=== PATIENT | female | born 1965 | race Caucasian/White ===

== ENCOUNTER → 2020-08-30 | Outpatient (CLI) | payer MEDICARE, MEDICAID ==
[~2020-08-30] MED LIST: ALPR0.5T7 PO; AMLO-150 PO; AMLO10TA4 PO; AMLO2.5T5 PO; BIOT25005 PO; CHOL10003 PO; DICL75TA3 PO; ESTR1PAT89; ESTR1TAB15 PO; ETAN50DI2 INJ; FLUT9.9S NAS; GABA-826 PO; GABA300C PO; GABA300C10 PO; HYDR-3240 PO; HYDR12.517 PO; LACT1CAP37 PO; LEFL20TA PO; LORA10TA75 PO; LOSA50TA2 PO; METH750T87 PO; METO1TAB18 PO; MONT10TA6 PO; OMEP40CA42 PO; ONDA4TAB7 PO; OXYC-307 PO; OXYC10TA6 PO
[2020-08-30 16:27] LABS: HCT (SEDRATE) 41.9 % (34.6-47.8)
[2020-08-30 16:30] LABS: BASOPHILS % (AUTO) 1 % (0-1); EOSINOPHILS % (AUTO) 4 % (1-7); LYMPHOCYTES % (AUTO) 30 % (22-44); MEAN CORPUSCULAR HEMOGLOBIN 29.3 pg (27.0-34.8); MEAN CORPUSCULAR HGB CONC 31.5 g/dL (32.4-35.8); MEAN PLATELET VOLUME 7.9 fL (7.4-10.4); MONOCYTES % (AUTO) 13 % (2-9); NEUTROPHILS % (AUTO) 52 % (42-75); PLATELET COUNT 293 x10^3/uL (130-400); RED BLOOD COUNT 4.56 x10^6/uL (3.82-5.3); RED CELL DISTRIBUTION WIDTH 15.3 % (9.6-15.2)
[2020-08-30 16:32] LABS: INTERNATIONAL NORMALIZED RATIO 0.98 (0.93-1.1); PROTHROMBIN TIME 10.4 Seconds (9.6-11.5)
[2020-08-30 16:34] LABS: ALBUMIN 2.9 g/dL (3.4-5.0); ANION GAP 4 mmol/L (5-15); CALCIUM 8.6 mg/dL (8.5-10.1); CHLORIDE 111 mmol/L (98-107)
[2020-08-30 16:37] LABS: ALANINE AMINOTRANSFERASE 31 U/L (12-78); ALKALINE PHOSPHATASE 115 U/L (45-117); BILIRUBIN,TOTAL 0.4 mg/dL (0.2-1.0); CREATININE 0.81 mg/dL (0.55-1.02); MD NO; TOTAL PROTEIN 6.3 g/dL (6.4-8.2)
== END | disposition home or self-care (01) ==
LOC: STAR 14:30
PROVIDERS: ATTEND Orthopaedic Surgery Orthopaedic Surgery of the Spine
DX: Z01.812 Encounter for preprocedural laboratory examination (principal); M16.12 Unilateral primary osteoarthritis, left hip; Z20.828 Contact with and (suspected) exposure to other viral communicable diseases
CPT/HCPCS: 36415; 71046; 80053; 83036; 85025; 85610; 85651; 85730; 87081; 87635; 93005

== ENCOUNTER → 2020-12-20 | Outpatient (CLI) | payer MEDICARE, MEDICAID ==
[~2020-12-20] MED LIST changes: +ASPI325T17 PO; +ASPI500P3 PO; +CEPH-368 PO; +HYDR-1067 PO; -HYDR-3240 PO; +METO50TA82 PO; -OXYC-307 PO; +OXYC-380 PO
[2020-12-20 14:08] LABS: ALBUMIN 3.1 g/dL (3.4-5.0); ANION GAP 5 mmol/L (5-15); CALCIUM 9.4 mg/dL (8.5-10.1); CHLORIDE 106 mmol/L (98-107); PROTHROMBIN TIME 10.7 Seconds (9.6-11.5)
[2020-12-20 14:09] LABS: BASOPHILS % (AUTO) 2 % (0-1); EOSINOPHILS % (AUTO) 4 % (1-7); LYMPHOCYTES % (AUTO) 25 % (22-44); MEAN CORPUSCULAR HEMOGLOBIN 24.5 pg (27.0-34.8); MEAN CORPUSCULAR HGB CONC 31.7 g/dL (32.4-35.8); MEAN PLATELET VOLUME 8.4 fL (7.4-10.4); MONOCYTES % (AUTO) 10 % (2-9); NEUTROPHILS % (AUTO) 59 % (42-75); PLATELET COUNT 330 x10^3/uL (130-400); RED BLOOD COUNT 5.01 x10^6/uL (3.82-5.3); RED CELL DISTRIBUTION WIDTH 19.9 % (9.6-15.2)
[2020-12-20 14:11] LABS: ALANINE AMINOTRANSFERASE 23 U/L (12-78); ALKALINE PHOSPHATASE 117 U/L (45-117); BILIRUBIN,TOTAL 0.5 mg/dL (0.2-1.0); CREATININE 0.74 mg/dL (0.55-1.02); TOTAL PROTEIN 6.5 g/dL (6.4-8.2)
[2020-12-20 14:34] LABS: ANISOCYTOSIS 1+; HYPOCHROMIA 1+; MD MORPH REVIEW ONLY; MICROCYTOSIS 1+
[2020-12-20 14:35] LABS: POLYCHROMASIA 1+
[2020-12-20 14:36] LABS: <PLATELET ESTIMATE> ADEQUATE; <PLT MORPHOLOGY> NORMAL PLT MORPH; OVALOCYTES 1+
[2020-12-20 15:00] LABS: HCT (SEDRATE) 38.8 % (34.6-47.8)
== END | disposition home or self-care (01) ==
LOC: STAR 12:21
PROVIDERS: ATTEND Orthopaedic Surgery Orthopaedic Surgery of the Spine
DX: Z01.812 Encounter for preprocedural laboratory examination (principal); Z20.822 Contact with and (suspected) exposure to COVID-19; R94.31 Abnormal electrocardiogram [ECG] [EKG]
CPT/HCPCS: 71046; 80053; 83036; 85025; 85610; 85651; 85730; 87635; 93005

== ENCOUNTER 2020-12-31 19:59 | Emergency (ER) | payer MEDICARE, MEDICAID ==
[~2020-12-31] VITALS: Ht 172.7 cm; Wt 91.9 kg
[2020-12-31 20:02] VITALS: BP 128/96
--- NOTE | 2020-12-31 20:26 | NUR ---
PROVIDER AT BEDSIDE TO ASSESS SURGICAL SITE.
--- NOTE | 2020-12-31 20:40 | NUR ---
PT BANDAGED PER VERBAL INSTRUCTIONS FROM PA
--- NOTE | 2020-12-31 20:42 | NUR ---
PREVIOUS NOTE BY JONNY HALL
== END 2020-12-31 21:18 | disposition home or self-care (01) ==
LOC: ED 20:47
DX: T81.31XA Disruption of external operation (surgical) wound, not elsewhere classified, initial encounter (principal); L76.34 Postprocedural seroma of skin and subcutaneous tissue following other procedure; I10 Essential (primary) hypertension; K21.9 Gastro-esophageal reflux disease without esophagitis
CPT/HCPCS: 99281

== ENCOUNTER 2021-01-17 12:34 | Inpatient (IN) | payer MEDICARE, MEDICAID ==
[~2021-01-17] VITALS: Ht 172.7 cm; Wt 85.3 kg
--- NOTE | 2021-01-17 13:03 | NUR ---
REPORT RECEIVED FROM ABIMBOLA HALL. PT RESTING ON GURNEY W/ CALL LIGHT IN REACH AND SIDE RAILS UPX2. RESP EVEN AND UNLABORED, DAYDAY. AWAITING ED EVAL.
--- NOTE | 2021-01-17 13:27 | NUR ---
THIS IS A 55 YO F BIB EMS W/ C/O LOW BACK PAIN S/P LOW BACK SX W/ 12/24/20. LAST APT WAS 01/05/21. PT REPORTS DIFFICULTY AMBULATING AND CARING FOR SELF R/T PAIN. NO RELIEF W/ HOME PAIN MEDS. NO OOZING, DRAINAGE, SWELLING AT SURGICAL SITE. UNABLE TO ASSESS WARMTH R/T PT LAYING ON BACK. PT FEBRILE AND TACHYCARIC, OTHER VS WDL. PT RECEIVED 400ML BOLUS, FENTANYL AND ZOFRAN CAR AUDIO INSTALLER PER ABIMBOLA RN. PT RESTING ON GURNEY W/ CALL LIGHT IN REACH AND SIDE RAILS UPX2. RESP EVEN AND UNLABORED, NADN.
[2021-01-17] MEDS ORDERED: HYDROmorphone 1 MG/ML, 1ML INJ ONE (13:41)
[2021-01-17] MEDS ORDERED: ONDANSETRON 2MG/ML, 2ML ONE (13:42)
--- NOTE | 2021-01-17 13:49 | NUR ---
LAB IN ROOM.
--- NOTE | 2021-01-17 13:50 | NUR ---
PT DESAT DURING LAB DRAW 88-89% RA. PLACED ON 2L NC PRIOR TO MEDICATING.
--- NOTE | 2021-01-17 13:56 | NUR ---
RAD IN ROOM.
[2021-01-17] MEDS ORDERED: SODIUM CHLORIDE 0.9% 1,000ML IVBOLUS ONE (14:00)
[2021-01-17] MEDS ORDERED: ONDANSETRON 2MG/ML, 2ML IVPush ONE (14:00)
[2021-01-17] MEDS ORDERED: HYDROmorphone 1 MG/ML, 1ML INJ IVPush PRN (14:00)
[2021-01-17 14:08] LABS: MEAN CORPUSCULAR HEMOGLOBIN 22.6 pg (27.0-34.8); MEAN CORPUSCULAR HGB CONC 31.2 g/dL (32.4-35.8); MEAN PLATELET VOLUME 7.5 fL (7.4-10.4); PLATELET COUNT 399 x10^3/uL (130-400); RED BLOOD COUNT 4.48 x10^6/uL (3.82-5.3); RED CELL DISTRIBUTION WIDTH 19.3 % (9.6-15.2)
--- NOTE | 2021-01-17 14:11 | NUR ---
STRAIGHT CATH UA OBTAINED W/O INCIDENT. SPECIMEN WALKED TO LAB. PT RESTING ON [employer] W/ CALL LIGHT IN REACH AND SIDE RAILS UPX2. RESP EVEN AND UNLABORED, DAYDAY. AWAITING RESULTS.
[2021-01-17 14:16] LABS: ALANINE AMINOTRANSFERASE 21 U/L (12-78); ALBUMIN 2.8 g/dL (3.4-5.0); ANION GAP 10 mmol/L (5-15); CALCIUM 8.4 mg/dL (8.5-10.1); CHLORIDE 100 mmol/L (98-107); CREATININE 0.73 mg/dL (0.55-1.02)
[2021-01-17 14:19] LABS: ALKALINE PHOSPHATASE 140 U/L (45-117); BILIRUBIN,TOTAL 0.7 mg/dL (0.2-1.0); TOTAL PROTEIN 6.4 g/dL (6.4-8.2)
[2021-01-17 14:23] LABS: MD YES
[2021-01-17 14:25] LABS: BANDS%(MANUAL) 11 % (0-7); LYMPH#(MANUAL) 0.38 x10^3/uL (1-3.4); LYMPHS% (MANUAL) 2 % (22-44); MONOS#(MANUAL) 0.57 x10^3/uL (0.3-2.7); MONOS% (MANUAL) 3 % (2-9); SEG#(MANUAL) 16.04 x10^3/uL (1.8-6.8); SEGS% (MANUAL) 84 % (42-75)
[2021-01-17 14:26] LABS: ANISOCYTOSIS 1+
[2021-01-17 14:27] LABS: HYPOCHROMIA 1+; MICROCYTOSIS 1+; OVALOCYTES 1+
[2021-01-17 14:28] LABS: SCHISTOCYTES 1+; TEAR DROPS 1+
[2021-01-17 14:29] LABS: POLYCHROMASIA 1+
[2021-01-17 14:30] LABS: <PLATELET ESTIMATE> ADEQUATE; <PLT MORPHOLOGY> NORMAL PLT MORPH
[2021-01-17 14:39] LABS: MICROSCOPIC INDICATED
[2021-01-17] MEDS ORDERED: PIPERACILLIN/TAZO/PMX 3.375GM 50 ML ONE (14:58)
[2021-01-17] MEDS ORDERED: VANCOMYCIN PER PHARMACY MC PRN ×2 (15:00→21:00)
[2021-01-17] MEDS ORDERED: VANCOMYCIN 2,100 MG in SODIUM CHLORIDE 0.9% 500 ML IV ONE (15:00)
[2021-01-17] MEDS ORDERED: POTASSIUM CHLORIDE 40 MEQ in SODIUM CHLORIDE 0.9% 500 ML IV ONE (15:00)
[2021-01-17] MEDS ORDERED: PIPERACILLIN/TAZO/PMX 3.375GM 50 ML IV ONE (15:00)
--- NOTE | 2021-01-17 15:12 | NUR ---
PT TAKEN TO MRI AT THIS TIME. VSS, NADN. ABX AND IVF INFUSING APPROPRIATELY.
[2021-01-17] MEDS ORDERED: GADOTERATE 10 MMOL/20ML SYR ONE (15:58)
--- NOTE | 2021-01-17 16:32 | NUR ---
2ND PIV STARTED FOR MEDS. PT RESTING ON [employer] SBV W/ CALL LIGHT IN REACH AND SIDE RAILS UPX2. RESP EVEN AND UNLABORED, NADN. ALL TESTS RESULTED. PT IS UP FOR RECHECK AT THIS TIME.
[2021-01-17] MEDS ORDERED: ACETAMINOPHEN 500 MG TABLET ONE (17:44)
--- NOTE | 2021-01-17 17:47 | NUR ---
AT BEDSIDE TO UPDATE PT ON POC FOR ADMIT.
[2021-01-17] MEDS ORDERED: ACETAMINOPHEN 500 MG TABLET PO/NG ONE (18:00)
--- NOTE | 2021-01-17 18:25 | NUR ---
REGULAR DIET TRAY DELIVERED TO PT OK PER .
--- NOTE | 2021-01-17 18:29 | NUR ---
PT WHEELED TO BR, TRANSFERED TO TOILET W/ A STAND BY ASSIST. RETURNED TO ROOM W/O INCIDENT. RESP EVEN AND UNLABORED, DAYDAY. PT SITTING UP ON GURNEY EATING FOOD. CALL LIGHT IN REACH. AWAITING ADMIT.
--- NOTE | 2021-01-17 19:05 | NUR ---
LATE ENTRY: RECEVIVED BS REPORT FROM RAFAEL CAMACHO TO ASSUME CARE OF PT. AT THIS TIME. ALL MONITORS IN PLACE. PT. C/O FOOD TRAY BEING UN-EDIBLE; OFFERED SANDWICH/CHIPS, PT. DECLINES ANY FOOD OFFERS. ALL SAFETY MEASURES OBSERVED. CALL LIGHT IN REACH.
--- NOTE | 2021-01-17 19:05 | NUR ---
REPORT GIVEN TO ROSEANN HALL. PT RESTING ON GURNEY W/ CALL LIGHT IN REACH AND SIDE RAILS UPX2. RESP EVEN AND UNLABORED, GABBYN. AWAITING ADMIT.
--- NOTE | 2021-01-17 19:59 | NUR ---
PT. RESTING ON GURNEY WITH EYES CLOSED. EVEN, NON-LABORED RESPIRATIONS VISIBLE. ALL SAFETY MEASURES MAINTAINED. AWAITING [facility] EVAL FOR BED PLACEMENT UPSTAIRS.
--- NOTE | 2021-01-17 20:36 | NUR ---
[facility] AT BS TO DEMETRIO PT. FOR ADMISSION. LAB TO BS FOR REPEAT BLOOD DRAW.
[2021-01-17] MEDS ORDERED: ACETAMINOPHEN 325 MG TABLET PO PRN (21:00)
[2021-01-17] MEDS ORDERED: PROMETHAZINE 25 MG/ML, 1ML IM PRN (21:00)
[2021-01-17] MEDS ORDERED: ENALAPRILAT 1.25 MG/ML, 2ML IVPush PRN (21:00)
--- NOTE | 2021-01-17 21:21 | NUR ---
EKG DONE AND HANDED TO DR. CRANE. PT. TO GO TO MEDICAL FLOOR PER DR. CRANE.
--- NOTE | 2021-01-17 21:22 | NUR ---
TP RN UPDATED ON LEVEL OF CARE.
[2021-01-17] MEDS ORDERED: POTASSIUM CHLORIDE 20 MEQ TAB.ER.PRT PO ONE (21:30)
[2021-01-17] MEDS ORDERED: CALCIUM GLUCONATE 4.6 MEQ in SODIUM CHLORIDE 0.9% 50 ML IV ONE (21:30)
--- NOTE | 2021-01-17 21:31 | NUR ---
FIRST ATTMEPT TO CALL REPORT TO FLOOR.
--- NOTE | 2021-01-17 21:36 | NUR ---
REPORT TO RAFAEL MCKEON. FLOOR READY FOR PT. TRANSPORT.
[2021-01-17 22:21] VITALS: BP 106/69
[2021-01-17] MEDS ORDERED: PHARMACOKINETIC MONITORING MC PRN (22:30)
[2021-01-17] MEDS ORDERED: PHARMACOKINETIC CONSULTATION MC ONE (22:30)
[2021-01-17] MEDS: PIPERACILLIN/TAZO/PMX 3.375GM 50 ML IV SCH (22:31)
[2021-01-17] MEDS: POTASSIUM CHLORIDE 20 MEQ in LACTATED RINGERS 1,000 ML IV SCH (22:38)
[2021-01-17] MEDS: OXYcodone IR 5MG TABLET PO PRN (22:38)
[2021-01-17] MEDS: ONDANSETRON 2MG/ML, 2ML IVPush PRN (22:50)
[2021-01-17] MEDS: morphine SULFATE 10 MG/ML, 1ML IVPush PRN (23:20)
[2021-01-18 00:56] VITALS: BP 118/75
[2021-01-18] MEDS: PIPERACILLIN/TAZO/PMX 3.375GM 50 ML IV SCH ×4 (04:17→22:54)
[2021-01-18] MEDS: morphine SULFATE 10 MG/ML, 1ML IVPush PRN ×3 (04:23→09:40)
[2021-01-18 05:02] LABS: BASOPHILS % (AUTO) 1 % (0-1); EOSINOPHILS % (AUTO) 0 % (1-7); LYMPHOCYTES % (AUTO) 8 % (22-44); MEAN CORPUSCULAR HEMOGLOBIN 22.9 pg (27.0-34.8); MEAN PLATELET VOLUME 7.6 fL (7.4-10.4); MONOCYTES % (AUTO) 8 % (2-9); NEUTROPHILS % (AUTO) 84 % (42-75); PLATELET COUNT 328 x10^3/uL (130-400); RED BLOOD COUNT 3.91 x10^6/uL (3.82-5.3); RED CELL DISTRIBUTION WIDTH 19.2 % (9.6-15.2)
[2021-01-18 05:04] LABS: MD NO
[2021-01-18 05:10] LABS: ANION GAP 6 mmol/L (5-15); CALCIUM 8.2 mg/dL (8.5-10.1); CHLORIDE 106 mmol/L (98-107)
[2021-01-18] MEDS: VANCOMYCIN 1,600 MG in SODIUM CHLORIDE 0.9% 250 ML IV SCH ×2 (05:37→19:02)
[2021-01-18 07:27] VITALS: BP 126/75
[2021-01-18] MEDS: POTASSIUM CHLORIDE 20 MEQ in LACTATED RINGERS 1,000 ML IV SCH (09:25)
[2021-01-18] MEDS: ONDANSETRON 2MG/ML, 2ML IVPush PRN (09:39)
[2021-01-18] MEDS ORDERED: HYDROmorphone PCA 30 MG/30 ML IV PRN ×2 (12:30)
[2021-01-18 12:46] VITALS: BP 117/76
[2021-01-18 19:33] VITALS: BP 110/71
[2021-01-19 00:43] VITALS: BP 126/81
[2021-01-19] MEDS: PIPERACILLIN/TAZO/PMX 3.375GM 50 ML IV SCH ×4 (04:42→23:00)
[2021-01-19] MEDS ORDERED: VANCOMYCIN 1,600 MG in SODIUM CHLORIDE 0.9% 250 ML IV SCH ×2 (07:00→21:30)
[2021-01-19 07:15] VITALS: BP 100/62
[2021-01-19] MEDS: D5%-0.45NACL+KCL 20MEQ 1,000 ML IV SCH ×3 (08:35→22:47)
[2021-01-19 13:53] VITALS: BP 107/69
[2021-01-19] MEDS ORDERED: TRANEXAMIC ACID 100 MG/ML, 10ML ONE (14:40)
[2021-01-19] MEDS ORDERED: BUPIVACAINE/PF-EPI 0.5% 1:200K ONE (14:40)
[2021-01-19] MEDS ORDERED: BACITRACIN 50,000 UNIT ONE (14:41)
[2021-01-19] MEDS ORDERED: THROMBIN 20,000 UNIT VIAL TP ONE (14:41)
[2021-01-19] MEDS ORDERED: VANCOMYCIN 1,000 MG ONE ×2 (14:41→17:06)
[2021-01-19] MEDS ORDERED: CHLORHEXIDINE 15 ML UDC ONE (15:09)
[2021-01-19] MEDS ORDERED: CHLORHEXIDINE 15 ML UDC MM ONE (15:30)
[2021-01-19] MEDS ORDERED: MIDAZOLAM 1 MG/ML, 2ML ONE (15:35)
[2021-01-19] MEDS ORDERED: FENTANYL PF 100 MCG/2ML ONE ×3 (15:35→18:54)
[2021-01-19] MEDS ORDERED: ACETAMINOPHEN 325 MG TABLET PO PRN (17:00)
[2021-01-19] MEDS ORDERED: HYDROmorphone 1 MG/ML, 1ML INJ IVPush PRN (17:00)
[2021-01-19] MEDS ORDERED: METHOCARBAMOL 1,000 MG in DEXTROSE 5% 100 ML IV PRN (17:00)
[2021-01-19] MEDS ORDERED: MEPERIDINE/PF 25MG/0.5ML IVPush PRN (17:00)
[2021-01-19] MEDS ORDERED: PROMETHAZINE 25 MG/ML, 1ML IVPush PRN (17:00)
[2021-01-19] MEDS ORDERED: ONDANSETRON 2MG/ML, 2ML IVPush PRN (17:00)
[2021-01-19] MEDS ORDERED: HYDROcodone/APAP 7.5-325MG/15ML UDC PO PRN (17:00)
[2021-01-19] MEDS ORDERED: KETOROLAC 30 MG/1 ML IVPush PRN (17:00)
[2021-01-19] MEDS ORDERED: OXYcodone 5 MG/5 ML ORAL.SOL UDC PO PRN (17:00)
[2021-01-19] MEDS ORDERED: FENTANYL PF 100 MCG/2ML IV PRN (17:00)
[2021-01-19] MEDS ORDERED: PROPOFOL 10 MG/ML, 20ML ONE (17:09)
[2021-01-19] MEDS ORDERED: CEFAZOLIN 1,000 MG ONE (17:09)
[2021-01-19] MEDS ORDERED: GLYCOPYRROLATE 0.2MG/1ML, 5ML ONE (17:09)
[2021-01-19] MEDS ORDERED: NEOSTIGMINE 1 MG/ML, 10ML ONE (17:09)
[2021-01-19] MEDS ORDERED: DEXAMETHASONE 4 MG/ML, 1ML ONE (17:09)
[2021-01-19] MEDS ORDERED: SUCCINYLCHOLINE 20 MG/ML, 10ML ONE (17:09)
[2021-01-19] MEDS ORDERED: ROCURONIUM 10MG/ML,5ML ONE (17:09)
[2021-01-19] MEDS ORDERED: ONDANSETRON 2MG/ML, 2ML ONE (17:09)
[2021-01-19] MEDS ORDERED: TOBRAMYCIN SULFATE 1.2 GM IMP ONE (17:11)
[2021-01-19] MEDS ORDERED: GENTAMICIN 80 MG/2 ML ONE (17:11)
[2021-01-19] MEDS ORDERED: OXYcodone 5 MG/5 ML ORAL.SOL UDC ONE (18:54)
[2021-01-19 22:14] VITALS: BP 103/70
[2021-01-20 00:08] VITALS: BP 120/80
[2021-01-20] MEDS: D5%-0.45NACL+KCL 20MEQ 1,000 ML IV SCH ×2 (03:41→15:16)
[2021-01-20 04:05] VITALS: BP 116/76
[2021-01-20] MEDS: PIPERACILLIN/TAZO/PMX 3.375GM 50 ML IV SCH ×2 (04:59→10:49)
[2021-01-20 07:50] VITALS: BP 125/75
[2021-01-20] MEDS: ONDANSETRON 2MG/ML, 2ML IVPush PRN (08:01)
[2021-01-20] MEDS ORDERED: ONDANSETRON 4 MG TABLET PO PRN (10:30)
[2021-01-20] MEDS: MONTELUKAST 10 MG TABLET PO SCH (10:30)
[2021-01-20] MEDS: METHOCARBAMOL 750 MG TABLET PO SCH (10:48)
[2021-01-20] MEDS: GABAPENTIN 300 MG CAPSULE PO SCH ×3 (10:48→21:44)
[2021-01-20] MEDS: OMEPRAZOLE 20 MG CAPSULE.DR PO SCH ×2 (10:48→19:56)
[2021-01-20] MEDS: ESTRADIOL 1 MG TABLET PO SCH (10:48)
[2021-01-20 12:04] VITALS: BP 126/73
[2021-01-20] MEDS: MEROPENEM 1 GM in SODIUM CHLORIDE 0.9% 100 ML IV SCH ×2 (13:56→21:44)
[2021-01-20] MEDS ORDERED: GENTAMICIN 200 MG in SODIUM CHLORIDE 0.9% 100 ML IV SCH (14:00)
[2021-01-20] MEDS ORDERED: VANCOMYCIN 1,600 MG in SODIUM CHLORIDE 0.9% 250 ML IV SCH (18:00)
[2021-01-20 20:37] VITALS: BP 129/83
[2021-01-21 01:16] VITALS: BP 122/70
[2021-01-21] MEDS: D5%-0.45NACL+KCL 20MEQ 1,000 ML IV SCH ×2 (04:40→16:34)
[2021-01-21] MEDS: MEROPENEM 1 GM in SODIUM CHLORIDE 0.9% 100 ML IV SCH ×3 (05:49→21:38)
[2021-01-21 06:26] VITALS: BP 134/83
[2021-01-21] MEDS: METHOCARBAMOL 750 MG TABLET PO SCH (08:53)
[2021-01-21] MEDS: ESTRADIOL 1 MG TABLET PO SCH (08:53)
[2021-01-21] MEDS: MONTELUKAST 10 MG TABLET PO SCH (08:53)
[2021-01-21] MEDS: GABAPENTIN 300 MG CAPSULE PO SCH ×3 (08:53→21:38)
[2021-01-21] MEDS: OMEPRAZOLE 20 MG CAPSULE.DR PO SCH ×2 (08:53→16:34)
[2021-01-21] MEDS ORDERED: PICC FLUSH PROTOCOL XX PRN (11:00)
[2021-01-21 12:30] VITALS: BP 113/73
[2021-01-21 19:49] VITALS: BP 112/74
[2021-01-22 01:11] VITALS: BP 148/85
[2021-01-22] MEDS: D5%-0.45NACL+KCL 20MEQ 1,000 ML IV SCH ×3 (02:42→23:33)
[2021-01-22] MEDS: MEROPENEM 1 GM in SODIUM CHLORIDE 0.9% 100 ML IV SCH (05:30)
[2021-01-22 07:13] VITALS: BP 113/71
[2021-01-22] MEDS: MONTELUKAST 10 MG TABLET PO SCH (07:54)
[2021-01-22] MEDS: METHOCARBAMOL 750 MG TABLET PO SCH (07:54)
[2021-01-22] MEDS: OMEPRAZOLE 20 MG CAPSULE.DR PO SCH ×2 (07:54→20:23)
[2021-01-22] MEDS: ESTRADIOL 1 MG TABLET PO SCH (07:54)
[2021-01-22] MEDS: GABAPENTIN 300 MG CAPSULE PO SCH ×3 (07:54→20:23)
[2021-01-22] MEDS: ONDANSETRON 2MG/ML, 2ML IVPush PRN (10:25)
[2021-01-22] MEDS: HYDROmorphone 2MG TABLET PO PRN ×2 (10:25→15:49)
[2021-01-22] MEDS: SENNA/DOCUSATE TABLET PO SCH (11:00)
[2021-01-22] MEDS: DOCUSATE 100 MG CAPSULE PO SCH ×2 (11:00→20:23)
[2021-01-22] MEDS: CEFEPIME 1 GM in DEXTROSE 5% 50 ML IV SCH ×2 (12:19→19:26)
[2021-01-22 14:02] VITALS: BP 122/79
[2021-01-22 20:03] VITALS: BP 136/84
[2021-01-22] MEDS: OXYcodone IR 5MG TABLET PO PRN (20:23)
[2021-01-23] VITALS (7 sets, daily range): BP systolic 137–155; BP diastolic 80–88
[2021-01-23] MEDS: HYDROmorphone 2MG TABLET PO PRN ×5 (00:21→22:51)
[2021-01-23] MEDS: CEFEPIME 1 GM in DEXTROSE 5% 50 ML IV SCH ×3 (04:03→20:28)
[2021-01-23 05:50] LABS: BASOPHILS % (AUTO) 1 % (0-1); EOSINOPHILS % (AUTO) 9 % (1-7); LYMPHOCYTES % (AUTO) 18 % (22-44); MEAN CORPUSCULAR HEMOGLOBIN 23.1 pg (27.0-34.8); MEAN CORPUSCULAR HGB CONC 31.4 g/dL (32.4-35.8); MEAN PLATELET VOLUME 7.5 fL (7.4-10.4); MONOCYTES % (AUTO) 11 % (2-9); NEUTROPHILS % (AUTO) 61 % (42-75); PLATELET COUNT 301 x10^3/uL (130-400); RED BLOOD COUNT 2.99 x10^6/uL (3.82-5.3); RED CELL DISTRIBUTION WIDTH 19.5 % (9.6-15.2)
[2021-01-23 06:00] LABS: ALBUMIN 1.8 g/dL (3.4-5.0); ANION GAP 4 mmol/L (5-15); CALCIUM 9.2 mg/dL (8.5-10.1); CHLORIDE 113 mmol/L (98-107)
[2021-01-23 06:04] LABS: ALANINE AMINOTRANSFERASE 11 U/L (12-78); ALKALINE PHOSPHATASE 76 U/L (45-117); BILIRUBIN,TOTAL 0.3 mg/dL (0.2-1.0); CREATININE 1.36 mg/dL (0.55-1.02)
[2021-01-23 06:23] LABS: MD NO
[2021-01-23] MEDS: GABAPENTIN 300 MG CAPSULE PO SCH ×3 (08:36→20:29)
[2021-01-23] MEDS: OMEPRAZOLE 20 MG CAPSULE.DR PO SCH ×2 (08:36→20:29)
[2021-01-23] MEDS: SENNA/DOCUSATE TABLET PO SCH (08:36)
[2021-01-23] MEDS: MONTELUKAST 10 MG TABLET PO SCH (08:36)
[2021-01-23] MEDS: ESTRADIOL 1 MG TABLET PO SCH (08:36)
[2021-01-23] MEDS: METHOCARBAMOL 750 MG TABLET PO SCH (08:37)
[2021-01-23] MEDS: DOCUSATE 100 MG CAPSULE PO SCH ×2 (08:50→20:29)
[2021-01-24 01:17] VITALS: BP 145/85
[2021-01-24] MEDS: CEFEPIME 1 GM in DEXTROSE 5% 50 ML IV SCH ×3 (04:23→21:03)
[2021-01-24] MEDS: HYDROmorphone 2MG TABLET PO PRN ×5 (04:24→21:04)
[2021-01-24 06:56] LABS: BASOPHILS % (AUTO) 1 % (0-1); EOSINOPHILS % (AUTO) 9 % (1-7); LYMPHOCYTES % (AUTO) 18 % (22-44); MEAN CORPUSCULAR HEMOGLOBIN 23.9 pg (27.0-34.8); MEAN CORPUSCULAR HGB CONC 31.6 g/dL (32.4-35.8); MEAN PLATELET VOLUME 7.6 fL (7.4-10.4); MONOCYTES % (AUTO) 10 % (2-9); NEUTROPHILS % (AUTO) 63 % (42-75); PLATELET COUNT 333 x10^3/uL (130-400); RED CELL DISTRIBUTION WIDTH 20.5 % (9.6-15.2)
[2021-01-24 06:59] LABS: MD NO
[2021-01-24 07:00] VITALS: BP 150/89
[2021-01-24 07:04] LABS: ALANINE AMINOTRANSFERASE 11 U/L (12-78); ALBUMIN 1.8 g/dL (3.4-5.0); ANION GAP 7 mmol/L (5-15); CALCIUM 8.8 mg/dL (8.5-10.1); CHLORIDE 111 mmol/L (98-107); CREATININE 1.41 mg/dL (0.55-1.02)
[2021-01-24 07:12] LABS: ALKALINE PHOSPHATASE 91 U/L (45-117); BILIRUBIN,TOTAL 0.6 mg/dL (0.2-1.0); TOTAL PROTEIN 5.1 g/dL (6.4-8.2)
[2021-01-24] MEDS: METHOCARBAMOL 750 MG TABLET PO SCH (08:26)
[2021-01-24] MEDS: POTASSIUM CHLORIDE 20 MEQ TAB.ER.PRT PO SCH ×2 (08:26→16:51)
[2021-01-24] MEDS: MONTELUKAST 10 MG TABLET PO SCH (08:26)
[2021-01-24] MEDS: GABAPENTIN 300 MG CAPSULE PO SCH ×3 (08:26→21:03)
[2021-01-24] MEDS: ESTRADIOL 1 MG TABLET PO SCH (08:26)
[2021-01-24] MEDS: OMEPRAZOLE 20 MG CAPSULE.DR PO SCH ×2 (08:27→17:00)
[2021-01-24] MEDS: DOCUSATE 100 MG CAPSULE PO SCH ×2 (09:00→21:04)
[2021-01-24] MEDS: SENNA/DOCUSATE TABLET PO SCH (09:00)
[2021-01-24 13:35] VITALS: BP 144/85
[2021-01-24] MEDS ORDERED: MAGNESIUM SULFATE PMX 2GM/50ML 50 ML IV ONE (16:00)
[2021-01-24] MEDS ORDERED: SODIUM CHLORIDE 0.9% 1,000 ML IV SCH (16:30)
[2021-01-24 19:25] VITALS: BP 136/84
[2021-01-25 01:10] VITALS: BP 153/87
[2021-01-25] MEDS: HYDROmorphone 2MG TABLET PO PRN ×3 (03:24→14:13)
[2021-01-25] MEDS: CEFEPIME 1 GM in DEXTROSE 5% 50 ML IV SCH (05:01)
[2021-01-25 06:48] LABS: BASOPHILS % (AUTO) 3 % (0-1); EOSINOPHILS % (AUTO) 9 % (1-7); LYMPHOCYTES % (AUTO) 22 % (22-44); MEAN CORPUSCULAR HGB CONC 31.9 g/dL (32.4-35.8); MEAN PLATELET VOLUME 7.4 fL (7.4-10.4); MONOCYTES % (AUTO) 10 % (2-9); NEUTROPHILS % (AUTO) 57 % (42-75); PLATELET COUNT 349 x10^3/uL (130-400); RED BLOOD COUNT 3.36 x10^6/uL (3.82-5.3); RED CELL DISTRIBUTION WIDTH 21.1 % (9.6-15.2)
[2021-01-25 06:49] LABS: MD NO
[2021-01-25 06:59] LABS: ANION GAP 7 mmol/L (5-15); CALCIUM 8.4 mg/dL (8.5-10.1); CHLORIDE 112 mmol/L (98-107); CREATININE 1.28 mg/dL (0.55-1.02)
[2021-01-25 07:05] VITALS: BP 157/91
[2021-01-25] MEDS: POTASSIUM CHLORIDE 20 MEQ TAB.ER.PRT PO SCH (09:25)
[2021-01-25] MEDS: ESTRADIOL 1 MG TABLET PO SCH (09:25)
[2021-01-25] MEDS: DOCUSATE 100 MG CAPSULE PO SCH (09:26)
[2021-01-25] MEDS: MONTELUKAST 10 MG TABLET PO SCH (09:26)
[2021-01-25] MEDS: GABAPENTIN 300 MG CAPSULE PO SCH (09:26)
[2021-01-25] MEDS: OMEPRAZOLE 20 MG CAPSULE.DR PO SCH (09:26)
[2021-01-25] MEDS: METHOCARBAMOL 750 MG TABLET PO SCH (09:26)
[2021-01-25] MEDS: SENNA/DOCUSATE TABLET PO SCH (09:27)
[2021-01-25] MEDS ORDERED: HYDR2TAB40 PO (10:01)
[2021-01-25] MEDS ORDERED: CEFE1FRO IV (10:01)
[2021-01-25] MEDS ORDERED: POTA20TA6 PO (10:01)
[2021-01-25] MEDS ORDERED: HYDR2TAB29 PO (11:03)
[2021-01-25] MEDS ORDERED: CEFEPIME 1 GM in DEXTROSE 5% 50 ML IV SCH ×2 (13:00→17:00)
[2021-01-25 13:45] VITALS: BP 131/85
== END 2021-01-25 14:27 | DRG 856 ==
LOC: ED 14:54 → EDIP 19:00 → 3N 22:03 → DCLOUNGE 01-19 18:06 → 4NE 01-19 22:05
PROVIDERS: ADMIT Family Medicine; ATTEND Hospitalist
PROC: 0QD00ZZ Extraction of Lumbar Vertebra, Open Approach (ICD-10-PCS; principal; 2021-01-19 16:30)
PROC: 02HV33Z Insertion of Infusion Device into Superior Vena Cava, Percutaneous Approach (ICD-10-PCS; 2021-01-21)
PROC: B5181ZA Fluoroscopy of Superior Vena Cava using Low Osmolar Contrast, Guidance (ICD-10-PCS; 2021-01-21)
PROC: 30233N1 Transfusion of Nonautologous Red Blood Cells into Peripheral Vein, Percutaneous Approach (ICD-10-PCS; 2021-01-23)
DX: T81.41XA Infection following a procedure, superficial incisional surgical site, initial encounter (principal); A41.9 Sepsis, unspecified organism; N17.0 Acute kidney failure with tubular necrosis; E44.0 Moderate protein-calorie malnutrition; K86.1 Other chronic pancreatitis; Z16.24 Resistance to multiple antibiotics; N39.0 Urinary tract infection, site not specified; G62.9 Polyneuropathy, unspecified; D17.9 Benign lipomatous neoplasm, unspecified; D50.9 Iron deficiency anemia, unspecified; E78.5 Hyperlipidemia, unspecified; E83.42 Hypomagnesemia; E87.6 Hypokalemia; I10 Essential (primary) hypertension; K21.9 Gastro-esophageal reflux disease without esophagitis; K52.9 Noninfective gastroenteritis and colitis, unspecified; R32 Unspecified urinary incontinence; Z96.643 Presence of artificial hip joint, bilateral; M79.7 Fibromyalgia; M48.00 Spinal stenosis, site unspecified; G89.29 Other chronic pain; Z96.653 Presence of artificial knee joint, bilateral; G60.8 Other hereditary and idiopathic neuropathies; Z98.1 Arthrodesis status; Z90.710 Acquired absence of both cervix and uterus; Z87.891 Personal history of nicotine dependence; Z83.3 Family history of diabetes mellitus; Z68.28 Body mass index [BMI] 28.0-28.9, adult
CPT/HCPCS: 36415; 36573; 71045; 72158; 80047; 80048; 80053; 80202; 81001; 83605; 83690; 83735; 84145; 85014; 85018; 85025; 85651; 86140; 86850; 86900; 86923; 87040; 87070; 87075; 87077; 87186; 87205; 87635; 93005; 96361; 96374; 96375; 99285; G0378; J0690; J0692; J1100; J1170; J2185; J2250; J2405; J2543; J2704; J2710; J3010; J3260; J3370; J3480; A9575; C1751; J0330; J1580; J2270; J3475; J7030; J7040; J7050; J7120; P9016